=== PATIENT | female | born 1975 | race Caucasian/White ===

== ENCOUNTER 2022-05-25 19:30 | Emergency (ER) | payer OTHER ==
[2022-05-25 19:42] VITALS: BP 122/66; PULSE 95
== END 2022-05-25 21:19 | disposition home or self-care (01) ==
LOC: JD.ED 19:30
DX: S62.511A Displaced fracture of proximal phalanx of right thumb, initial encounter for closed fracture (principal); Z91.030 Bee allergy status; Z79.82 Long term (current) use of aspirin; W20.8XXA Other cause of strike by thrown, projected or falling object, initial encounter; Y93.64 Activity, baseball
CPT/HCPCS: 29125; 73140-26-F5; 73140-F5; 99283